=== PATIENT | female | born 1970 | race Two or more races ===

== ENCOUNTER → 2024-09-18 | Outpatient (CLI) | payer OTHER, SELFPAY ==
[2024-09-18 12:23] LABS: Basophils % (Auto) 1 % (0-2.5); Eosinophils # (Auto) 0.1 Thou/mm3 (0.0-0.5); Eosinophils % (Auto) 1 % (0-10); Hematocrit 42.8 % (36.0-46.0); Hemoglobin 13.9 g/dL (12.0-16.0); Immature Granulocytes % (Auto) 0 % (0-0); Immature Granulocytes Auto 0.01 Thou/mm3 (0.00-0.00); Lymphocytes # (Auto) 1.7 Thou/mm3 (1.0-4.8); Lymphocytes % (Auto) 23 % (10-50); Mean Corpuscular HGB Conc 32.5 g/dl (31.0-37.0); Mean Corpuscular Hemoglobin 28.1 pg (25.0-35.0); Mean Corpuscular Volume 87 fL (80-100); Monocytes # (Auto) 0.5 Thou/mm3 (0.0-0.8); Monocytes % (Auto) 7 % (0-12); Neutrophils % (Auto) 69 % (37-80); Nucleated Red Blood Cell % 0 /100 WBC (0); Platelet Count 318 Thou/mm3 (140-440); RDW Standard Deviation 43.7 fL (36.4-46.3); Red Blood Count 4.94 Miln/mm3 (4.00-5.20); White Blood Count 7.3 Thou/mm3 (3.6-11.0)
[2024-09-18 12:33] LABS: Glucose Estimated Average 108 mg/dL (80-131); Hemoglobin A1C 5.4 % Hgb (4.8-6.0)
[2024-09-18 12:40] LABS: Alanine Aminotransferase 26 U/L (10-49); Albumin, Serum 4.7 gm/dL (3.5-5.0); Albumin/Globulin Ratio 1.7 (1.2-2.2); Alkaline Phosphatase 62 U/L (46-116); Anion Gap 8 (7-16); Aspartate Amino Transferase 22 U/L (0-34); BUN/Creatinine Ratio 19 Ratio (12-20); Bilirubin,Total 1.1 mg/dL (0.3-1.2); Blood Urea Nitrogen 13 mg/dL (9-23); Calcium 10.4 mg/dL (8.3-10.6); Calcium (Corrected) 10.4 mg/dL (8.5-10.1); Carbon Dioxide 28.6 mMol/L (20.0-31.0); Cardiac Risk Estimate 2.4 RATIO (3.7-5.6); Chloride 104 mMol/L (98-107); Cholesterol 163 mg/dL (132-200); Creatinine (Component) 0.7 mg/dL (0.6-1.3); Globulin 2.7 gm/dL (2.3-3.5); Glucose 100 mg/dL (74-106); HDL Cholesterol 67 mg/dL (40-60); LDL Cholesterol,Calculated 79 mg/dL (0-130); Osmolality,Calculated 281 (275-295); Sodium 141 mMol/L (136-145); Thyroid Stimulating Hormone 1.78 uIU/mL (0.55-4.78); Total Protein 7.4 gm/dL (5.7-8.2); Triglycerides 83 mg/dL (30-150); eGFR > 60 See Note
== END | disposition home or self-care (01) ==
LOC: COPL 11:19
PROVIDERS: PCP Internal Medicine; Referring Provider Internal Medicine; Visit Provider Internal Medicine
DX: I10 Essential (primary) hypertension (principal); E78.5 Hyperlipidemia, unspecified; Z79.899 Other long term (current) drug therapy
CPT/HCPCS: 36415; 80053; 80061; 83036; 84443; 85025

== ENCOUNTER → 2025-03-19 | Outpatient (CLI) | payer OTHER, SELFPAY ==
--- NOTE | 2025-03-19 09:24 | XR_ITS ---
Examination: Left knee 4 views TECHNIQUE: AP oblique and lateral axial left knee 4 views Date and time: March 19, 2025 0938 hours INDICATIONS: Left knee pain one year. FINDINGS: Minimal narrowing medial joint space Minimal osteoarthritis patellofemoral joint No fracture No patellar dislocation IMPRESSION: Minimal osteoarthritis
== END | disposition home or self-care (01) ==
LOC: CDIM 09:18
PROVIDERS: PCP Internal Medicine; Referring Provider Internal Medicine; Visit Provider Internal Medicine
DX: M17.12 Unilateral primary osteoarthritis, left knee (principal)
CPT/HCPCS: 73564

== ENCOUNTER 2025-04-24 16:30 | Outpatient (RCR) | payer OTHER, SELFPAY ==
--- NOTE | 2025-04-17 14:50 | PT.OIERPT ---
PT OP Initial Eval Patient Information Outpatient Physical Therapy Treatment Date: 04/17/25 Visit Reasons: pain in left knee Medical Diagnosis: M25.562 Treatment Dx #1: L knee pain Start of Care: 04/17/25 Date of Onset: 2 yrs ago Smoking Status Smoking Status: Never smoker Initial Assessment Subjective: Pt is 54 yr old female who reports L knee pain x2 yrs. Increased pain with squatting, kneeling and stairs and she points to the joint lines and anterior knee as sites of pain. This limits working out and stepping to the side. PMH: HTN, allergies Imaging: Xray of L knee Minimal osteoarthritis Pt goal: to get rid of the pain Objective: L knee AROM: ? Flexion: 120 deg ? Extension: full ? Katie's: negative Patella compression: negative Ant drawer: negative Varus stress: positive for gapping ? SLR: 35 deg ? Strength: L quads 4-/5 limited by patella compression pain, hamstrings 4/5 Assessment: Pt presents with good L knee ROM but pain with loading the knee consistent with mild OA. Pt requires skilled therapy to meet goals and has fair rehab potential. Short Term and Senior Care Goals 1. Ind with HEP ? 2. Pt will squat x10 with min L knee pain ? 3. Pt will ascend/descend 1 flight of stairs with <=3/10 knee pain 4. Improved HH chore tolerance to at least 30 minutes with <=3/10 knee pain ? Treatment Plan 1. Manual therapy ? 2. Therex ? 3. Modalities as indicated, moist heat, ice, estim Frequency and Duration: 2x a week for 12 visits plus the evaluation. Will need provider's signature on this evaluation to continue past 3 visits. Certification Dates: 04/17/25 to 07/15/25 Procedure Charges OP PT Eval Mod Complex 30 minutes: Yes
--- NOTE | 2025-04-24 16:57 | PT.ODAYNRPT ---
PT Outpatient Daily Note OP Daily Note Outpatient Physical Therapy Treatment Date: 04/24/25 Visit Reasons: pain in left knee Subjective: Pt reports she is doing well with no pain to Lt knee. Objective: See F/S for therex performed Assessment: No pain with therex, min vc's required to correct form and avoid trunk leaning with 3 way hip exercise. Plan: Continue with POC Length of Time (minutes) of Treatment: 30 Minutes Procedure Charges Therapeutic Exercise 30 minutes: Yes
== END 2025-04-24 23:59 | disposition home or self-care (01) ==
LOC: CPTX 16:30
PROVIDERS: PCP Internal Medicine; Referring Provider Internal Medicine; Visit Provider Internal Medicine
DX: M25.562 Pain in left knee (principal); I10 Essential (primary) hypertension
CPT/HCPCS: 97110; 97162

== ENCOUNTER 2025-05-24 16:30 | Outpatient (RCR) | payer OTHER, SELFPAY ==
--- NOTE | 2025-04-26 17:17 | PT.ODAYNRPT ---
PT Outpatient Daily Note OP Daily Note Outpatient Physical Therapy Treatment Date: 04/26/25 Visit Reasons: Pain in left knee Subjective: Pt reports no pain to Lt knee, explains she only experiences pain with certain movements. Objective: See F/S for therex performed Assessment: Progressed in resistance and in ankle weight use with therex, maintained good mechanics with no onset of Lt knee pain. Improved independence with exercises, less vc's required to correct form. Plan: Continue with POC Length of Time (minutes) of Treatment: 30 Minutes Procedure Charges Therapeutic Exercise 30 minutes: Yes
--- NOTE | 2025-05-09 17:33 | PT.ODAYNRPT ---
PT Outpatient Daily Note OP Daily Note Outpatient Physical Therapy Treatment Date: 05/09/25 Visit Reasons: Pain in left knee Subjective: Some L knee pain with stepping up and squatting and points to anterior knee Objective: See F/S for therex Assessment: Progressed in resistance and in ankle weight use with therex, maintained good mechanics with no onset of Lt knee pain. Plan: Continue per POC Length of Time (minutes) of Treatment: 30 Minutes Procedure Charges Therapeutic Exercise 30 minutes: Yes
--- NOTE | 2025-05-14 17:16 | PT.ODAYNRPT ---
PT Outpatient Daily Note OP Daily Note Outpatient Physical Therapy Treatment Date: 05/14/25 Visit Reasons: Pain in left knee Subjective: Some L knee pain with stepping up and squatting and points to anterior knee Objective: See F/S for therex MT: STM L patella tendon x5' MHP x5' L knee Assessment: The anterior knee pain may be consistent with patella tendinopathy Plan: Continue per POC Length of Time (minutes) of Treatment: 30 Minutes Procedure Charges Therapeutic Exercise 30 minutes: Yes
--- NOTE | 2025-05-16 18:03 | PT.ODAYNRPT ---
PT Outpatient Daily Note OP Daily Note Outpatient Physical Therapy Treatment Date: 05/16/25 Visit Reasons: Pain in left knee Subjective: Some L knee pain with stepping up and squatting and points to anterior knee Objective: See F/S for therex Assessment: The anterior knee pain may be consistent with patella tendinopathy Plan: Continue per POC Length of Time (minutes) of Treatment: 30 Minutes Procedure Charges Therapeutic Exercise 30 minutes: Yes
--- NOTE | 2025-05-24 17:40 | PT.ODAYNRPT ---
PT Outpatient Daily Note OP Daily Note Outpatient Physical Therapy Treatment Date: 05/24/25 Visit Reasons: Pain in left knee Subjective: Some L knee pain with stepping up and squatting and points to anterior knee Objective: See F/S for therex STM patella tendon x5' Assessment: The anterior knee pain may be consistent with patella tendinopathy Plan: Continue per POC Length of Time (minutes) of Treatment: 30 Minutes Procedure Charges Therapeutic Exercise 30 minutes: Yes
== END 2025-05-25 23:59 | disposition home or self-care (01) ==
LOC: CPTX 16:30
PROVIDERS: PCP Internal Medicine; Referring Provider Internal Medicine; Visit Provider Internal Medicine
DX: M25.562 Pain in left knee (principal); I10 Essential (primary) hypertension
CPT/HCPCS: 97110

== ENCOUNTER 2025-06-14 17:00 | Outpatient (RCR) | payer OTHER, SELFPAY ==
--- NOTE | 2025-05-28 18:25 | PT.ODAYNRPT ---
PT Outpatient Daily Note OP Daily Note Outpatient Physical Therapy Treatment Date: 05/28/25 Visit Reasons: Pain in left knee Subjective: Some L knee pain with stepping up and squatting and points to anterior knee but overall getting better Objective: See F/S for therex Assessment: The anterior knee pain may be consistent with patella tendinopathy Plan: Continue per POC Length of Time (minutes) of Treatment: 30 Minutes Procedure Charges Therapeutic Exercise 30 minutes: Yes
--- NOTE | 2025-05-30 17:48 | PT.ODAYNRPT ---
PT Outpatient Daily Note OP Daily Note Outpatient Physical Therapy Treatment Date: 05/30/25 Visit Reasons: Pain in left knee Subjective: Some L knee pain with stepping up and squatting and points to lateral knee but overall getting better Objective: See F/S for therex MT: fibular head mobs and ankle inversion holds x7' Assessment: The anterior knee pain may be consistent with patella tendinopathy. The lateral knee pain is consistent with fibular head pain. Plan: Continue per POC Length of Time (minutes) of Treatment: 30 Minutes Procedure Charges Therapeutic Exercise 30 minutes: Yes
--- NOTE | 2025-06-06 17:39 | PT.ODAYNRPT ---
PT Outpatient Daily Note OP Daily Note Outpatient Physical Therapy Treatment Date: 06/06/25 Visit Reasons: Pain in left knee Subjective: Some L knee pain with stepping up and squatting and points to lateral knee but overall getting better Objective: See F/S for therex Assessment: The anterior knee pain may be consistent with patella tendinopathy. The lateral knee pain is consistent with fibular head pain that comes and goes. She has some varus gapping that may be contributing to ssx. Plan: Continue per POC Length of Time (minutes) of Treatment: 30 Minutes Procedure Charges Therapeutic Exercise 30 minutes: Yes
--- NOTE | 2025-06-11 17:55 | PT.ODAYNRPT ---
PT Outpatient Daily Note OP Daily Note Outpatient Physical Therapy Treatment Date: 06/11/25 Visit Reasons: Pain in left knee Subjective: Some L knee pain with stepping up and squatting and points to lateral knee but overall getting better Objective: See F/S for therex Assessment: The anterior knee pain may be consistent with patella tendinopathy. The lateral knee pain is consistent with fibular head pain that comes and goes. She has some varus gapping that may be contributing to ssx. Plan: Continue per POC Length of Time (minutes) of Treatment: 30 Minutes Procedure Charges Therapeutic Exercise 30 minutes: Yes
--- NOTE | 2025-06-14 17:13 | PT.ODAYNRPT ---
PT Outpatient Daily Note OP Daily Note Outpatient Physical Therapy Treatment Date: 06/14/25 Visit Reasons: Pain in left knee Subjective: Some L knee pain with stepping up and squatting and points to lateral knee but overall getting better Objective: See F/S for therex Assessment: The anterior knee pain may be consistent with patella tendinopathy. The lateral knee pain is consistent with fibular head pain that comes and goes. She has some varus gapping that may be contributing to ssx. Plan: Continue per POC Length of Time (minutes) of Treatment: 30 Minutes Procedure Charges Therapeutic Exercise 30 minutes: Yes
== END 2025-06-24 23:59 | disposition home or self-care (01) ==
LOC: CPTX 17:00
PROVIDERS: PCP Internal Medicine; Referring Provider Internal Medicine; Visit Provider Internal Medicine
DX: M25.562 Pain in left knee (principal)
CPT/HCPCS: 97110

== ENCOUNTER 2025-06-25 16:33 | Outpatient (RCR) | payer OTHER, SELFPAY ==
--- NOTE | 2025-06-25 17:54 | PT.ODS1RPT ---
PT OP Progress/Discharge Note Date of Service: 06/25/25 Progress Note/DC Note Progress Note/Discharge Note: DC Note Patient Information Visit Reasons: pain in left knee Service Continue Service or Discharge: Discharge Discharge Date: 06/25/25 Status Subjective: Some L knee pain with stepping up and squatting and points to lateral knee but overall getting better Objective: L knee ArOM: Flexion: 120 deg Extension: full Katie's: negative Patella compression negative Varus stress: mild gapping Strength: Quads: 4/5 HS: 4/5 Assessment: Pt has attended the eval and 07/06 Rx sessions with good progress to meet therapy goals. Pt can ascend/descend 1 flight of stairs and can do HH chores for 30 mins with <3/10 knee pain to meet those goals. Pt can squat x10 with mild lateral L knee pain to meet that goal. Plan: D/C with HEP Procedure Charges Therapeutic Exercise 30 minutes: Yes
== END 2025-07-25 23:59 | disposition home or self-care (01) ==
LOC: CPTX 16:33
PROVIDERS: PCP Internal Medicine; Referring Provider Internal Medicine; Visit Provider Internal Medicine
DX: M25.562 Pain in left knee (principal); I10 Essential (primary) hypertension
CPT/HCPCS: 97110